=== PATIENT | male | born 1985 | race Two or more races ===

== ENCOUNTER 2019-02-21 19:28 | Emergency (ER) | payer SELFPAY ==
[~2019-02-21] VITALS: Ht 182.9 cm; Wt 83.9 kg
[2019-02-21] MEDS ORDERED: NKM (19:37)
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
[2019-02-21 19:41] VITALS: BP 118/76
--- NOTE | 2019-02-21 20:02 | NUR ---
ED Nurse Note: RECEIVED ENDORSEMENT FROM [facility]. PT IS IN BED PATIENTLY WAITING FOR XRAY AND CT. NO FURTHER ORDERS AT THIS TIME. WILL CONTINUE TO MONITOR PT.
--- NOTE | 2019-02-21 20:20 | NUR ---
ED Nurse Note: PT TAKEN TO CT.
--- NOTE | 2019-02-21 20:34 | NUR ---
ED Nurse Note: PT RETURNED FROM CT.
--- NOTE | 2019-02-21 20:38 | NUR ---
ED Nurse Note: XRAY AT BEDSIDE
[2019-02-21] MEDS ORDERED: Acetaminophen 500mg (ES) tab ORAL ONE (20:45)
[2019-02-21] MEDS ORDERED: Methocarbamol 500mg tab ORAL ONE (20:45)
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
--- NOTE | 2019-02-21 21:04 | Diagnostic Imaging Report ---
EXAM: CT Head Without Intravenous Contrast CLINICAL HISTORY: PAIN TECHNIQUE: Axial computed tomography images of the head brain without intravenous contrast. CTDI is 60 mGy and DLP is 1352.1 mGy-cm. One or more of the following dose reduction techniques were used: automated exposure control, adjustment of the mA and or kV according to patient size, use of iterative reconstruction technique. COMPARISON: No relevant prior studies available. FINDINGS: Brain: No hemorrhage. No edema. Ventricles: No ventriculomegaly. Bones joints: No acute fracture. Soft tissues: Unremarkable. Sinuses: No acute sinusitis. Retention cyst polyp in the left maxillary sinus Mastoid air cells: No mastoid effusion. IMPRESSION: No acute intracranial process.
--- NOTE | 2019-02-21 21:05 | Diagnostic Imaging Report ---
EXAM: CT Cervical Spine Without Intravenous Contrast CLINICAL HISTORY: PAIN TECHNIQUE: Axial computed tomography images of the cervical spine without intravenous contrast. CTDI is 32.3 mGy and DLP is 796.6 mGy-cm. One or more of the following dose reduction techniques were used: automated exposure control, adjustment of the mA and or kV according to patient size, use of iterative reconstruction technique. COMPARISON: No relevant prior studies available. FINDINGS: Vertebrae: No acute fracture or destructive changes. Discs spinal canal neural foramina: No acute process. Soft tissues: Unremarkable. IMPRESSION: No fracture or malalignment.
[2019-02-21] MEDS ORDERED: LIDODERM700 M1 TOPIC (21:08)
[2019-02-21] MEDS ORDERED: TYLENOL EXTRA500 MG ORAL (21:08)
[2019-02-21] MEDS ORDERED: ROBAXIN-750750 MG PO (21:08)
[2019-02-21 21:33] VITALS: BP 118/76
--- NOTE | 2019-02-21 21:33 | NUR ---
ER DISCHARGE NOTE: Patient is cleared to be discharged per ERMD, pt is aox4, on room air, with stable vital signs. pt was given dc and prescription instructions, pt was able to verbalize understanding, pt id band removed. pt is able to ambulate with steady gait. pt took all belongings. pt friend picked him up
--- NOTE | 2019-02-21 22:08 | Diagnostic Imaging Report ---
EXAM: XR Right Knee, 3 views CLINICAL HISTORY: PAIN TECHNIQUE: Three views of the right knee. COMPARISON: No relevant prior studies available. FINDINGS: Bones joints: No acute fracture. Small effusion. Soft tissues: No radiodense foreign body. IMPRESSION: No acute fracture.
== END 2019-02-21 21:33 | disposition home or self-care (01) ==
LOC: EMR 19:46
DX: S16.1XXA Strain of muscle, fascia and tendon at neck level, initial encounter (principal); S80.01XA Contusion of right knee, initial encounter; F07.81 Postconcussional syndrome; V03.90XA Pedestrian on foot injured in collision with car, pick-up truck or van, unspecified whether traffic or nontraffic accident, initial encounter; Y92.410 Unspecified street and highway as the place of occurrence of the external cause
CPT/HCPCS: 70450; 72125; 99284